=== PATIENT | male | born 1975 | race Hispanic/Latino ===

== ENCOUNTER 2021-07-06 15:47 | Emergency (ER) | payer OTHER ==
[~2021-07-06] VITALS: Ht 170.2 cm; Wt 99.8 kg
[2021-07-06] MEDS ORDERED: IBUPROFEN 400 MG TAB PO ONE (16:30)
== END 2021-07-06 18:32 | disposition home or self-care (01) ==
LOC: ER 16:27
DX: M25.562 Pain in left knee (principal); X50.1XXA Overexertion from prolonged static or awkward postures, initial encounter; Y93.01 Activity, walking, marching and hiking; Y92.89 Other specified places as the place of occurrence of the external cause
CPT/HCPCS: 99283

== ENCOUNTER → 2021-08-05 | Outpatient (CLI) | payer OTHER | LOC: MRI 12:06 | PROVIDERS: ATTEND Specialist | DX: S83.222A Peripheral tear of medial meniscus, current injury, left knee, initial encounter (principal) ==